=== PATIENT | female | born 1990 | race Caucasian/White ===

== ENCOUNTER 2018-06-01 10:27 | Emergency (ER) | payer OTHER ==
[~2018-06-01] VITALS: Ht 162.6 cm; Wt 68.0 kg
[~2018-06-01 10:27] MED LIST: LEVOTHYROXINE125 MCG PO; OMEPRAZOLE20 MG PO
[2018-06-01] MEDS ORDERED: ARMOUR THYROID60 MG PO (10:39)
[2018-06-01] MEDS ORDERED: VENTOLIN HFA18 GM INH (10:59)
== END 2018-06-01 11:05 | disposition home or self-care (01) ==
LOC: ED 10:27
DX: R06.00 Dyspnea, unspecified (principal); E03.9 Hypothyroidism, unspecified; D64.9 Anemia, unspecified; Z88.0 Allergy status to penicillin; Z79.899 Other long term (current) drug therapy
CPT/HCPCS: 99284

== ENCOUNTER 2019-01-18 01:52 | Emergency (ER) | payer OTHER ==
[~2019-01-18] VITALS: Ht 162.6 cm; Wt 68.0 kg
[~2019-01-18 01:52] MED LIST changes: +ARMOUR THYROID60 MG PO; +VENTOLIN HFA18 GM INH
== END 2019-01-18 03:00 | disposition home or self-care (01) ==
LOC: ED 01:52
DX: K21.9 Gastro-esophageal reflux disease without esophagitis (principal); E03.9 Hypothyroidism, unspecified; D64.9 Anemia, unspecified; Z88.0 Allergy status to penicillin; Z79.899 Other long term (current) drug therapy
CPT/HCPCS: 99284

== ENCOUNTER 2019-06-29 07:40 | Day surgery (SDC) | payer OTHER ==
[~2019-06-29] VITALS: Ht 162.6 cm; Wt 71.7 kg
[~2019-06-29 07:40] MED LIST changes: +FERROUS GLUCON324 M2 PO; +ONDANSETRON HCL4 MG PO; +VITAMIN C500 M4 PO
[2019-06-29] MEDS ORDERED: DICLOFENAC SODI75 MG PO (09:50)
[2019-06-29] MEDS ORDERED: HYDROCODON-ACE1 EA11 PO (09:50)
--- NOTE | 2019-06-29 10:42 | NUR ---
06/29/19 1042 Toshia Franco 09 PT ARRIVED NON RESPONSIVE WITH OPA IN PLACE. 1002 PT REACTIVE. OPA REMOVED. 1015 CRYO CUFF PLACED ON L SHOULDER. C/O FEELING COLD AND SORE THROAT. WARM BLANKETS PLACED AND TAKING SIPS OF WATER. 1030 C/O L SHOULDER PAIN 03/21. ORDERS RECEIVED FROM ANESTHESIA TO GIVEN FENTANYL. PT DECLINED FENTANYL AND STATES "I DON'T WANT TO TAKE THAT, I'LL WAIT FOR PAIN PILLS." 1035 TO DS. FAMILY AT BEDSIDE.
--- NOTE | 2019-06-29 10:43 | NUR ---
PUDDING AND ICED WATER GIVEN. PATIENT'S SPOUSE IS GOING TO GET PATIENT A LATTE. PATIENT C/O HEADACHE AND REPORTS SHE NORMALLY DRINKS A FAIR AMOUNT OF CAFFEINE. CALL LIGHT IS WITHIN REACH.
--- NOTE | 2019-06-29 12:28 | NUR ---
LE 1200: DISCHARGE INSTRUCTIONS GIVEN TO PATIENT AND SHE VERBALIZES UNDERSTANDING. PATIENT IS ASSISTED DRESSED, SLING PLACED TO LEFT SHOULDER AND PATIENT AMBULATES TO THE BATHROOM. PATIENT VOIDS AND TRANSFERS SELF TO WHEELCHAIR AND TOLERATES THAT WELL. PATIENT IS DISCHARGED WITH CRYO CUFF. PATIENT ASKS ABOUT MIRALAX PRESCRIPTION TO BE SENT TO [facility] AND DR OWEN REPORTS HE DOES NOT BELIEVE IT IS NECESSARY AT THIS POINT. PATIENT VERBALIZES UNDERSTANDING.
--- NOTE | 2019-06-30 07:41 | OR ---
[facility] [address] [place], [place] [address] Signed DATE OF OPERATION: 06/29/2019 SURGEON: Endy Jack MD PREOPERATIVE DIAGNOSIS: Calcific tendinitis, left shoulder. POSTOPERATIVE DIAGNOSIS: Calcific tendinitis, left shoulder. PROCEDURE PERFORMED: Left shoulder arthroscopy with limited debridement. BOAT CLEANING SUPERVISOR: Maritza Saeed PA-C. Maritza was present and critical for all portions of procedure. ANESTHESIA: General with interscalene block. BLOOD LOSS: Minimal. IMPLANTS: None. BRIEF HISTORY: Dion is a 28-year-old female with a 12-14 month history of left shoulder pain. MRI is consistent with calcific tendinitis as was her x-ray, which showed a large calcific deposit in the posterolateral aspect of her subacromial space. Risks and benefits of operative treatment were discussed with her and she elected to proceed. DESCRIPTION OF PROCEDURE: Once consent was obtained, she was taken to the operating room. After adequate anesthesia, she was placed in the beach chair position. All downside pressure points well padded. The shoulder was prepped and draped in a standard sterile fashion and the shoulder was injected with 15 mL of 0.25% Marcaine with epinephrine as was subacromial space. Standard posterior portal was made and the scope was introduced in the shoulder. ARTHROSCOPIC FINDINGS: Electronically Signed By: ENDY JACK MD 06/30/19 0741 PATIENT NAME: DION ROSA OPERATIVE REPORT DATE OF : [birth year] REPORT #: [id number] PHYSICIAN: ENDY JACK MD PCP: MARITZA DUENAS REPORT IS CONFIDENTIAL AND NOT TO BE RELEASED WITHOUT AUTHORIZATION [address] [place], [place] [address] Signed The glenohumeral surfaces were intact. Biceps, biceps anchor and labrum were intact. The undersurface of the rotator cuff was intact and the subscapularis was intact. The scope was then withdrawn, placed in subacromial space, and the standard anterolateral portal was made and the bursa was visualized. There was virtually no bursitis except in the very posterolateral aspect. There was a large plica anteriorly. The shaver and Mitek VAPR were used to remove the bursitis posteriorly. There were several small calcium deposits removed at the same time. The plica was removed to allow better visualization. The shoulder was then taken through full range of motion, was found to be stable on examination and arthroscopic evaluation. The scope was withdrawn. Portals were closed with 3-0 nylon and dressed with a ProWick dressing. She tolerated the procedure well. All sponge, needle, and instrument counts were correct. Endy Jack MD BA/YOELL /[id number] Copies: ~ Electronically Signed By: ENDY JACK MD 06/30/19 0741 PATIENT NAME: DION ROSA OPERATIVE REPORT DATE OF : [birth year] REPORT #: [id number] PHYSICIAN: ENDY JACK MD PCP: MARITZA DUENAS REPORT IS CONFIDENTIAL AND NOT TO BE RELEASED WITHOUT AUTHORIZATION
== END 2019-06-29 12:05 | disposition home or self-care (01) ==
LOC: DS 07:40 → OPS 07:40
PROVIDERS: Specialist
PROC: 0RBK4ZZ Excision of Left Shoulder Joint, Percutaneous Endoscopic Approach (ICD-10-PCS; principal; 2019-06-29 09:15)
DX: M75.32 Calcific tendinitis of left shoulder (principal); Z88.0 Allergy status to penicillin; Z79.899 Other long term (current) drug therapy
CPT/HCPCS: 64415; 76942; J0330; J0690; J1100; J1200; J1885; J2250; J2405; J2704; J2795; J7120

== ENCOUNTER 2021-02-14 10:17 | Emergency (ER) | payer OTHER ==
[~2021-02-14] VITALS: Ht 162.6 cm; Wt 79.4 kg
[~2021-02-14 10:17] MED LIST changes: +DICLOFENAC SODI75 MG PO; +HYDROCODON-ACE1 EA11 PO
[2021-02-14] MEDS ORDERED: TRIAMCINOLONE A15 G3 TOP (12:17)
== END 2021-02-14 12:31 | disposition home or self-care (01) ==
LOC: ED 10:17
DX: L25.9 Unspecified contact dermatitis, unspecified cause (principal); E03.9 Hypothyroidism, unspecified; D64.9 Anemia, unspecified; Z88.0 Allergy status to penicillin; Z79.899 Other long term (current) drug therapy
CPT/HCPCS: 99282

== ENCOUNTER 2022-03-23 00:21 | Emergency (ER) | payer OTHER ==
[~2022-03-23] VITALS: Ht 162.6 cm; Wt 79.4 kg
[~2022-03-23 00:21] MED LIST changes: +TRIAMCINOLONE A15 G3 TOP
[2022-03-23] MEDS ORDERED: CARAFATE1 GM PO (01:47)
[2022-03-23] MEDS ORDERED: PROTONIX40 MG PO (01:47)
== END 2022-03-23 02:05 | disposition home or self-care (01) ==
LOC: ED 00:21
DX: K21.9 Gastro-esophageal reflux disease without esophagitis (principal); E03.9 Hypothyroidism, unspecified; D64.9 Anemia, unspecified; Z88.0 Allergy status to penicillin; Z79.899 Other long term (current) drug therapy
CPT/HCPCS: 36415; 80053; 81001; 83690; 84703; 85025; 96374; 99284-25; C9113

== ENCOUNTER 2022-04-15 09:47 | Emergency (ER) | payer OTHER ==
[~2022-04-15] VITALS: Ht 162.6 cm; Wt 78.5 kg
[~2022-04-15 09:47] MED LIST changes: +CARAFATE1 GM PO; +PROTONIX40 MG PO
--- OUTSIDE RECORDS SUMMARY | 2022-04-15 09:54 | XMS ---
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 Alex has no Care Guidelines for this patient. [facility]12 MO.) [facility] NOTE: Visits indicate total known visits. ED[facility] VISIT TRACKING (12 MO.) [facility] [place] [facility] COMPLAINT: - HEAD/NECK INJURY 03/23/2022 00:21 [facility] [place] TYPE: Emergency COMPLAINT: - ABD PAIN DIAGNOSES: - Other prison (current) drug therapy - Allergy status to penicillin - Epigastric pain - Hypothyroidism, unspecified - Anemia, unspecified - Gastro-esophageal reflux disease without esophagitis INPATIENT VISIT TRACKING (12 MO.) No inpatient visits to display in this time frame [email or web address]
== END 2022-04-15 10:41 | disposition home or self-care (01) ==
LOC: ED 09:47
DX: S06.0X0A Concussion without loss of consciousness, initial encounter (principal); S16.1XXA Strain of muscle, fascia and tendon at neck level, initial encounter; S30.0XXA Contusion of lower back and pelvis, initial encounter; E03.9 Hypothyroidism, unspecified; K21.9 Gastro-esophageal reflux disease without esophagitis; Z79.899 Other long term (current) drug therapy; Z88.0 Allergy status to penicillin; V92.09XA Drowning and submersion due to fall off unspecified watercraft, initial encounter
CPT/HCPCS: 99283

== ENCOUNTER 2022-10-01 09:39 | Emergency (ER) | payer OTHER ==
[~2022-10-01] VITALS: Ht 162.6 cm; Wt 78.5 kg
[2022-10-01] MEDS ORDERED: LEVOTHYROXINE175 MCG PO (09:55)
--- NOTE | 2022-10-03 21:59 | EKG ---
[facility] [address] [facility] [place] [address] Signed Normal sinus rhythm Normal ECG No previous ECGs available Confirmed by Araceli Shannon MD () on 10/03/2022 9:59:19 PM Electronically Signed By: ARACELI SHANNON MD 10/03/222158 PATIENT NAME: DION ROSA Electrocardiogram DATE OF : 86 PHYSICIAN: ARACELI SHANNON MD REPORT #: [id number] REPORT IS CONFIDENTIAL AND NOT TO BE RELEASED WITHOUT AUTHORIZATION
== END 2022-10-01 11:53 | disposition home or self-care (01) ==
LOC: ED 09:39
DX: R55 Syncope and collapse (principal); E03.9 Hypothyroidism, unspecified; D64.9 Anemia, unspecified; K21.9 Gastro-esophageal reflux disease without esophagitis; Z88.0 Allergy status to penicillin; Z79.899 Other long term (current) drug therapy
CPT/HCPCS: 36415; 70450; 80053; 85025; 93005; 93010; 96360; 99284-25; J7030